=== PATIENT | male | born 1995 | race Caucasian/White ===

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

== ENCOUNTER 2017-08-29 20:28 | Emergency (ER) | payer MEDICARE, MEDICAID ==
[2016-01-07 12:12] VITALS: BMI 39.4
== END 2017-08-29 22:27 | disposition home or self-care (01) ==
LOC: D.ER 20:28
DX: R13.10 Dysphagia, unspecified (principal)

== ENCOUNTER 2017-11-01 21:36 | Emergency (ER) | payer MEDICARE, MEDICAID ==
[2016-01-07 12:12] VITALS: BMI 39.4
== END 2017-11-02 01:17 | disposition home or self-care (01) ==
LOC: D.ER 21:36
DX: L02.413 Cutaneous abscess of right upper limb (principal)

== ENCOUNTER 2018-04-08 09:30 | Day surgery (SDC) | payer MEDICARE, MEDICAID ==
[~2018-04-08] VITALS: Ht 165.1 cm; Wt 92.3 kg
--- NOTE | ~2018-04-08 | OP ---
PATIENT NAME: TARA VALLEJO JR MEDICAL RECORD: [id number] :97 LOCATION:[facility] ADMISSION DATE: SURGEON: ROSIE GONZALEZ MD DATE OF OPERATION: 04/08/2018 PROCEDURE: EGD with biopsy. REFERRING PHYSICIAN: Jayesh Sharif MD INDICATIONS: Mr. Vallejo is a pleasant 23-year-old gentleman with a history of GE reflux disease, Hughes's esophagitis, who has had symptoms of heartburn, dysphagia, vomiting, and epigastric pain. His last EGD 03/01/2015 showed a proximal food bolus, which was advanced into the stomach, whipple-esophagitis, suspicious for eosinophilic esophagitis, small hiatal hernia, mid esophageal polyp, and minimal gastritis; gastric biopsies were negative for H. pylori. Mid and distal esophageal biopsies were consistent with Hughes's esophagitis and the polyp that was biopsied in the mid esophagus showed Hughes's esophagus and reflux esophagitis. At his clinic visit in February 2018, he was restarted on omeprazole 40 mg daily. He presents for outpatient EGD. PREMEDICATIONS: Total IV anesthesia (developmental delay, Hughes's, GE reflux disease) ASA 3, propofol 350 mg. INSTRUMENT: Olympus video gastroscope. PROCEDURE AND FINDINGS: After receiving informed consent, Mr. Vallejo's posterior pharynx was anesthetized with Cetacaine spray, placed in left lateral decubitus position, sedated as per anesthesia. After achieving adequate level of sedation, gastroscope was introduced per orally and advanced to the duodenum without difficulty. Esophageal mucosa was remarkable for a 0.75 cm firm nodule at 24 cm, which was biopsied. The Z line was located at 25 cm and Hughes's esophagus extended from 25 cm to 32 cm. Biopsies were taken at 25, 26, 28, 30, and 32 cm in all 4 quadrants. A small hiatal hernia is present. Gastric mucosa was notable for moderate patchy erythema in the antrum, body, and fundus of the stomach. Antral biopsies were obtained to rule out Helicobacter pylori. Pylorus was patent and competent. Duodenal mucosa was without erythema or ulcers, appeared normal to the second portion. Biopsies were taken from the second portion of duodenum to rule out celiac disease. Gastroscope was then withdrawn. Mr. Vallejo tolerated the procedure well, no immediate complications. ASSESSMENT: 1. Esophageal nodule at 24 cm, status post biopsy. 2. Hughes's esophagus 7 cm status post surveillance biopsies. 3. Small hiatal hernia. 4. Moderate gastritis. RECOMMENDATIONS: 1. Follow up histopathology. 2. Avoid nonsteroidal anti-inflammatory drugs. 3. Increased omeprazole 40 mg to twice a day. 4. Referral to Dr. Ojeda for Hughes's esophagus, GE reflux disease; he may benefit from antireflux procedure. 5. Surveillance EGD in 1 year. TRANSINT:[id number] Voice Confirmation ID: [id number] DOCUMENT ID: [id number] OPERATIVE REPORT [id number] TARA VALLEJO JR, TERRI MD at 1828 CC: JAYESH SHARIF MD [id number] DICTATION DATE: 04/08/18 1319 LEAD FABRICATOR: 04/08/18 1407 [facility] 04/08/18 [id number] [place] [address]
[2018-04-08 10:08] LABS: HEMATOCRIT 45.7 % (42.0-54.0); HEMOGLOBIN 15.7 g/dL (13.5-17.5); MCH 29.6 pg (26.0-34.0); MCHC 34.4 g/dL (31.0-37.0); MCV 86.1 fL (80.0-100.0); MEAN PLATELET VOLUME 9.6 fL (7.4-10.4); RBC 5.31 10x6/uL (4.20-6.10); RDW 12.9 % (11.5-14.5); WBC 6.1 10x3/uL (4.8-10.8)
[2018-04-08] MEDS ORDERED: DEPAKOTE250 MG PO ×2 (10:29→10:31)
[2018-04-08] MEDS ORDERED: STRATTERA40 MG PO (10:32)
[2018-04-08 10:34] LABS: CALC OSMOLALITY 279 mosm/kg (275-300); CALCIUM 9.3 mg/dL (8.5-10.1); CARBON DIOXIDE 28.7 mmol/L (21.0-32.0); CHLORIDE - SERUM 102 mmol/L (98-107); CREATININE - SERUM 0.7 mg/dL (0.6-1.3); GLUCOSE 81 mg/dL (74-106); POTASSIUM - SERUM 4.6 mmol/L (3.5-5.1); SODIUM 141 mmol/L (136-145); UREA NITROGEN 13 mg/dL (7-18); eGFR NON AFRICAN AMERICAN > 90 mL/min (90-120)
[2018-04-08] MEDS ORDERED: TRAZODONE HCL150 MG PO (10:34)
[2018-04-08] MEDS ORDERED: ABILIFY10 MG PO (10:35)
[2018-04-08] MEDS ORDERED: PROZAC40 MG PO (10:36)
[2018-04-08] MEDS ORDERED: OMEPRAZOLE40 MG PO (10:37)
[2018-04-08] MEDS ORDERED: DOXEPIN HCL75 MG PO (10:37)
[2018-04-08] MEDS ORDERED: VENTOLIN HFA18 GM INH (10:39)
[2018-04-08] MEDS ORDERED: SYMBICORT 16010.2 GM INH (10:39)
[2018-04-08 10:56] VITALS: BP 112/76; Ht 165.1 cm; Wt 92.3 kg
== END 2018-04-08 14:35 | disposition home or self-care (01) ==
LOC: D.OPS 09:30
PROVIDERS: Anesthesiology
DX: K22.70 Barrett's esophagus without dysplasia (principal); K44.9 Diaphragmatic hernia without obstruction or gangrene; K29.50 Unspecified chronic gastritis without bleeding; K29.80 Duodenitis without bleeding; K21.0 Gastro-esophageal reflux disease with esophagitis; R62.50 Unspecified lack of expected normal physiological development in childhood; Z01.812 Encounter for preprocedural laboratory examination

== ENCOUNTER → 2018-06-04 11:53 | Outpatient (CLI) | payer MEDICARE, MEDICAID ==
[2018-04-08 10:56] VITALS: BMI 33.8
[~2018-06-04 11:53] MED LIST changes: +ABILIFY10 MG PO; +DEPAKOTE250 MG PO; +DOXEPIN HCL75 MG PO; +OMEPRAZOLE40 MG PO; +PROZAC40 MG PO; +STRATTERA40 MG PO; +SYMBICORT 16010.2 GM INH; +TRAZODONE HCL150 MG PO; +VENTOLIN HFA18 GM INH
== END | disposition home or self-care (01) ==
LOC: D.LAB 11:53
PROVIDERS: Internal Medicine Gastroenterology
DX: R19.7 Diarrhea, unspecified (principal)